=== PATIENT | male | born 1985 | race American Indian/Alaskan Native ===

== ENCOUNTER 2021-07-26 11:06 | Emergency (ER) | payer BC, OTHER ==
[2021-07-26 11:31] VITALS: BP 143/85
[2021-07-26] MEDS ORDERED: TETANUS,DIPH,PERTUSS(ACELL) VACCINE 0.5 ML SYRINGE IM ONE (11:37)
--- NOTE | 2021-07-26 11:38 | Emergency Department Report ---
ED Lower Extremity HPI - General Chief Complaint: Laceration/Recheck/Suture Stated Complaint: LEG INJURY Time Seen by Provider: 07/26/21 11:36 Source: patient Mode of arrival: Ambulatory Limitations: No Limitations - History of Present Illness Initial Comments: Three 5-year-old male presents to the ER today with complaints of left knee injury. Patient states that 7 days ago while she was at work his left knee got crushed between a electric pallet steve and a metal bar. He reports an abrasion to the posterior aspect of his left knee as well as pain mainly to the posterior aspect of his left knee and also to the lateral aspect of the knee. He reports swelling to the knee but he states that the swelling is improved. He reports increased pain with weightbearing, ambulation and flexion of the knee. He states that this is his first time getting checked out since the injury. He states that the main reason he came in was because he was concerned that he may have a have a blood clot, because his mom also from a blood clot secondary to an injury in her lower leg. He denies any history of PE or DVTs in the past. He denies any chest pain, shortness of breath or any additional symptoms at this time. Complaint: knee injury -: days(s) (7) - Related Data Previous Rx's Medication Instructions Recorded Last Taken Type Bacitracin Zinc Oint [Antibiotic 1 applicatio TP TID 7 Days #1 tube 07/26/21 Unknown Rx Oint] Ibuprofen [Motrin] 800 mg PO Q8HR PRN #30 tablet 07/26/21 Unknown Rx Allergies Allergy/AdvReac Type Severity Reaction Status Date / Time No Known Allergies Allergy Verified 07/26/21 11:28 ED Review of Systems ROS: Stated complaint: LEG INJURY Other details as noted in HPI Comment: All other systems reviewed and negative Constitutional: denies: chills, fever Eyes: denies: eye pain, eye discharge, vision change ENT: denies: ear pain, throat pain, dental pain, hearing loss, epistaxis, congestion Respiratory: denies: cough, shortness of breath, SOB with exertion, SOB at rest, wheezing Cardiovascular: denies: chest pain, palpitations Endocrine: no symptoms reported Gastrointestinal: denies: abdominal pain, nausea, vomiting, diarrhea, constipation, hematemesis, melena, hematochezia Genitourinary: denies: urgency, dysuria, frequency, hematuria, discharge, testicular pain, testicular mass Musculoskeletal: joint swelling. denies: back pain, arthralgia Skin: other (abrasion posterior knee). denies: rash, lesions Neurological: denies: headache, weakness, numbness, paresthesias, confusion Psychiatric: denies: anxiety, depression, auditory hallucinations, visual hallucinations, homicidal thoughts Hematological/Lymphatic: denies: easy bleeding, easy bruising, swollen glands ED Past Medical Hx - Past Medical History Previous Medical History?: No - Surgical History Past Surgical History?: No - Medications Home Medications: Home Medications Medication Instructions Recorded Confirmed Last Taken Type Bacitracin Zinc Oint [Antibiotic 1 applicatio TP TID 7 Days #1 tube 07/26/21 Unknown Rx Oint] Ibuprofen [Motrin] 800 mg PO Q8HR PRN #30 tablet 07/26/21 Unknown Rx ED Physical Exam - General Limitations: No Limitations General appearance: alert, in no apparent distress - Head Head exam: Present: atraumatic, normocephalic, normal inspection - Eye Eye exam: Present: normal appearance, PERRL, EOMI Pupils: Present: normal accommodation - Neck Neck exam: Present: normal inspection, full ROM - Respiratory Respiratory exam: Present: normal lung sounds bilaterally. Absent: respiratory distress, wheezes, rales, rhonchi, stridor - Cardiovascular Cardiovascular Exam: Present: regular rate, normal rhythm, normal heart sounds - Expanded Lower Extremity Exam Left Knee exam: Present: tenderness (Mainly posterior knee, and also mildly tall lateral knee), swelling, abrasion (Single linear superficial abrasion noted to the posterior aspect of the knee without any signs of infection), full knee extension. Absent: full ROM (reduced extension due to pain ), deformity, crepidus, dislocation, erythema, effusion Lower Leg exam: Present: normal inspection. Absent: tenderness, palpable cord, Romulo's sign Neuro vascular tendon exam: Present: no vascular compromise. Absent: pulse deficit, abnormal cap refill, motor deficit, sensory deficit, tendon deficit Gait: Positive: observed and normal - Neurological Exam Neurological exam: Present: alert, oriented X3, CN II-XII intact - Psychiatric Psychiatric exam: Present: normal affect, normal mood - Skin Skin exam: Present: intact ED Course Vital Signs 07/26/21 11:28 Temperature 98.8 F Pulse Rate 93 H Respiratory 18 Rate Blood Pressure 143/85 O2 Sat by Pulse 100 Oximetry ED Lower Extremity MDM - Radiology Data Radiology results: report reviewed Patient: COREY GO MR#: [id number] : 1985 Acct:[id number] Age/Sex: 35 / M ADM Date: 07/26/21 Loc: ED Attending Dr: Ordering Physician: SUNSHINE HERNANDEZ Date of Service: 07/26/21 Procedure(s): XR knee 3V LT Accession Number(s): [id number] cc: SUNSHINE HERNANDEZ Fluoro Time In Minutes: LEFT KNEE 3 VIEWS INDICATION: Crush injury knee. COMPARISON: None. IMPRESSION: No acute osseous or soft tissue abnormality. No significant DJD. Signer Name: Wenceslao Rm Jr, MD Signed: 07/26/2021 12:10 PM Workstation Name: [id number] Transcribed By: TTR Dictated By: WENCESLAO RM JR, MD Electronically Authenticated By: WENCESLAO RM JR, MD Signed Date/Time: 07/26/21 1210 DD/ 1210 TD/TT: Patient: COREY GO MR#: [id number] : 1985 Acct:[id number] Age/Sex: 35 / M ADM Date: 07/26/21 Loc: ED Attending Dr: Ordering Physician: SUNSHINE HERNANDEZ Date of Service: 07/26/21 Procedure(s): VL venous duplex LE LT Accession Number(s): [id number] cc: SUNSHINE HERNANDEZ DUPLEX DOPPLER LOWER EXTREMITY VEINS, LEFT INDICATION / CLINICAL INFORMATION: calf pain/crush injury to knee 7 days ago. TECHNIQUE: Duplex doppler imaging was performed through the veins of the left lower extremity using venous compression and other maneuvers. COMPARISON: None available. FINDINGS: LEFT COMMON FEMORAL VEIN: Negative. LEFT FEMORAL VEIN: Negative. LEFT POPLITEAL VEIN: Negative. LEFT CALF VEINS: Negative. ADDITIONAL FINDINGS: None. IMPRESSION: 1. No sonographic evidence for DVT in the left lower extremity. Signer Name: Missael Maier DO Signed: 07/26/2021 12:53 PM Workstation Name: [id number] Transcribed By: MONIK Dictated By: MISSAEL MAIER DO Electronically Authenticated By: MISSAEL MAIER DO Signed Date/Time: 07/26/211252 DD/ 52 TD/TT: Critical care attestation.: If time is entered above; I have spent that time in minutes in the direct care of this critically ill patient, excluding procedure time. ED Disposition Clinical Impression: Left knee injury, Abrasion, knee Disposition: HOME / SELF CARE / HOMELESS Is pt being admited?: No Does the pt Need Aspirin: No Condition: Stable Instructions: Abrasion, Contusion Additional Instructions: I recommend that you take the ibuprofen as prescribed to help with pain and swelling. Keep the area clean with soap and water, do not use peroxide or alcohol and dry the area well after each cleaning apply thin layer of bacitracin to help prevent infection. Continue to wear the Erik wrap or [id number] knee brace with most importantly I recommend following up with Ortho either this week or next week for further evaluation including MRI to rule out any ligament or cartilage injury. Return to the ER if your symptoms changes or worsens in any way. Prescriptions: Bacitracin Zinc Oint [Antibiotic Oint] 1 applicatio TP TID 7 Days #1 tube Ibuprofen [Motrin] 800 mg PO Q8HR PRN #30 tablet PRN Reason: Pain Referrals: ANGELA JIMENEZ MD [Staff Physician] - 3-5 Days Forms: Work/School Release Form(ED) Time of Disposition: 13:11 Print Language: BENGALI
--- NOTE | 2021-07-26 12:15 | XRay Report ---
LEFT KNEE 3 VIEWS INDICATION: Crush injury knee. COMPARISON: None. IMPRESSION: No acute osseous or soft tissue abnormality. No significant DJD. Signer Name: Wenceslao Rm Jr, MD Signed: 07/26/2021 12:10 PM Workstation Name: [id number]
--- NOTE | 2021-07-26 12:58 | Vascular Lab Report ---
DUPLEX DOPPLER LOWER EXTREMITY VEINS, LEFT INDICATION / CLINICAL INFORMATION: calf pain/crush injury to knee 7 days ago. TECHNIQUE: Duplex doppler imaging was performed through the veins of the left lower extremity using v enous compression and other maneuvers. COMPARISON: None available. FINDINGS: LEFT COMMON FEMORAL VEIN: Negative. LEFT FEMORAL VEIN: Negative. LEFT POPLITEAL VEIN: Negative. LEFT CALF VEINS: Negative. ADDITIONAL FINDINGS: None. IMPRESSION: 1. No sonographic evidence for DVT in the left lower extremity. Signer Name: Missael Das DO Signed: 07/26/2021 12:53 PM Workstation Name: [id number]
== END 2021-07-26 14:17 | disposition home or self-care (01) ==
LOC: ED 11:06
DX: S80.212A Abrasion, left knee, initial encounter (principal); W23.0XXA Caught, crushed, jammed, or pinched between moving objects, initial encounter; Y93.89 Activity, other specified; Y92.89 Other specified places as the place of occurrence of the external cause; Y99.8 Other external cause status
CPT/HCPCS: 90471; 90715; 99283